=== PATIENT | female | born 2005 | race Caucasian/White ===

== ENCOUNTER 2024-07-03 16:04 | Emergency (ER) | payer OTHER ==
[2024-07-03] VITALS (16 sets, daily range): BP systolic 89–126; BP diastolic 45–74
[~2024-07-03] VITALS: Ht 152.4 cm; Wt 103.8 kg
[2024-07-03 16:59] LABS: BASO% 0.5 % (0-3); HEMATOCRIT 43.3 % (37.0-47.0); HEMOGLOBIN 14.4 g/dl (12.0-16.0); IMMATURE GRANULOCYTES 0.2 % (0.0-5.0); MEAN CELL VOLUME 86.9 fL CALC (80.0-100.0); MEAN CORPUSCULAR HGB 28.9 pG CALC (26.0-32.0); MEAN CORPUSCULAR HGB CONC 33.3 g/dL CAL (32.0-36.0); MONO% 7.1 % (2-13); NEUT# 9.81 thou/uL (2.00-7.15); NEUT% 66.2 % (42-76); RED BLOOD COUNT 4.98 mill/uL (4.20-5.60); RED CELL DISTRI WIDTH 13.1 % (11.5-15.5)
[2024-07-03 17:12] LABS: ALBUMIN 4.9 g/dL (3.2-5.0); BILIRUBIN, TOTAL 0.6 mg/dL (0.02-1.3); CREATININE 0.9 mg/dL (0.5-1.0); POTASSIUM 4.1 mmol/l (3.5-5.1); TOTAL PROTEIN 8.3 g/dL (6.3-8.2)
[2024-07-03 17:18] LABS: URINE BILIRUBIN - DIPSTICK Negative (NEGATIVE); URINE BLOOD DIPSTICK Negative (NEGATIVE); URINE COLOR Yellow; URINE GLUCOSE - DIPSTICK Negative (NEGATIVE); URINE KETONE Negative (NEGATIVE); URINE LEUK ESTERASE Negative (NEGATIVE); URINE NITRITE - DIPSTICK Positive (Negative); URINE PH 5.5 (4.5-8.0); URINE PROTEIN - DIPSTICK Negative (NEG-TRACE); URINE SPECIFIC GRAVITY >=1.030; URINE UROBILINOGEN - DIPSTICK 0.2 E.U./dL (0.2)
[2024-07-03 17:27] LABS: URINE BACTERIA MODERATE hpf; URINE SQUAMOUS EPITHELIAL CELL MANY EPI/hpf (0-FEW)
[2024-07-03] MEDS ORDERED: CYCLOBENZAPRINE10 MG PO (19:45)
[2024-07-03] MEDS ORDERED: MELOXICAM15 MG PO (19:45)
== END 2024-07-03 20:08 | disposition home or self-care (01) | DRG 552 ==
LOC: ED 16:04
PROVIDERS: Family Medicine
DX: M54.2 Cervicalgia (principal); R07.81 Pleurodynia; R51.9 Headache, unspecified; M79.605 Pain in left leg; V49.50XA Passenger injured in collision with unspecified motor vehicles in traffic accident, initial encounter
CPT/HCPCS: Q9967

== ENCOUNTER 2024-11-01 17:13 | Emergency (ER) | payer SELFPAY ==
[2024-11-01] VITALS (7 sets, daily range): BP systolic 107–138; BP diastolic 56–81
[~2024-11-01] VITALS: Ht 157.5 cm; Wt 110.0 kg
[~2024-11-01 17:13] MED LIST: CYCLOBENZAPRINE10 MG PO; MELOXICAM15 MG PO
== END 2024-11-01 20:00 | disposition home or self-care (01) | DRG 605 ==
LOC: ED 17:13
PROC: 2W3EX1Z Immobilization of Right Hand using Splint (ICD-10-PCS; principal; 2024-11-01)
DX: S60.011A Contusion of right thumb without damage to nail, initial encounter (principal); W23.2XXA Caught, crushed, jammed or pinched between a moving and stationary object, initial encounter